=== PATIENT | male | born 1990 | race Two or more races ===

== ENCOUNTER 2021-06-04 01:34 | Emergency (ER) | payer MEDICAID, OTHER ==
[~2021-06-04] VITALS: Ht 175.3 cm; Wt 79.4 kg
[2021-06-04 01:34] VITALS: BP 128/92
[2021-06-04] MEDS ORDERED: AZITHROMYCIN 250 MG TAB PO ONE (03:45)
[2021-06-04] MEDS ORDERED: cefTRIAXone SOD 500 MG VL IM ONE (03:45)
== END 2021-06-04 05:03 | disposition home or self-care (01) ==
LOC: ER 01:41
DX: R10.2 Pelvic and perineal pain (principal); Z20.2 Contact with and (suspected) exposure to infections with a predominantly sexual mode of transmission
CPT/HCPCS: 96372; 99283; J0696